=== PATIENT | male | born 1940 | race American Indian/Alaskan Native ===

== ENCOUNTER 2017-03-22 10:43 | Emergency (ER) | payer MEDICARE, OTHER ==
--- NOTE | 2017-03-22 11:58 | EDM.PDOC ---
ED HPI GENERAL MEDICAL PROBLEM - General Chief Complaint: Back Pain or Injury Stated Complaint: PAIN Time Seen by Provider: 03/22/17 11:36 Source of Information: Reports: Patient, RN, RN Notes Reviewed History Limitations: Reports: No Limitations - History of Present Illness INITIAL COMMENTS - FREE TEXT/NARRATIVE: Patient presents to ER with complaint of left lower back pain which began about 3 days ago. It has progressively gotten worse. Pain is sharp and aching. Rates pain 10/10 and shoots upward into the back. Patient states he sees someone at [facility]. He is to be monitored monthly for kidneys and pancreas. Location: Reports: Back Quality: Reports: Ache Severity: Moderate Improves with: Reports: None Worsens with: Reports: None Associated Symptoms: Reports: No Other Symptoms Left Lower Back Pain Score (Numeric/FACES): 9 - Related Data Allergies Allergy/AdvReac Type Severity Reaction Status Date / Time No Known Allergies Allergy Verified 03/22/17 11:26 Home Meds: Home Meds Lisinopril [Prinivil] 10 mg PO DAILY 04/29/15 [History] Aspirin [[place] Aspirin] 1 tab PO DAILY 08/30/15 [History] Finasteride [Proscar] 1 tab PO DAILY 08/30/15 [History] Insulin NPH Human Isophane [Humulin N] INJECT ASDIRECTED 08/30/15 [History] Multivitamin [Multivitamins] 1 tab PO DAILY 08/30/15 [History] Tamsulosin [Flomax] 1 tab PO BID 08/30/15 [History] Triamterene/Hydrochlorothiazid [Dyazide 37.5-25] 1 tab PO DAILY 08/30/15 [ History] atorvaSTATin [Lipitor] 1 tab PO BEDTIME 08/30/15 [History] hydrOXYzine HCl [Atarax] 1 tab PO Q4H PRN 08/30/15 [History] metFORMIN HCl [Metformin HCl] 1 tab PO BID 08/30/15 [History] oxyCODONE HCl/Acetaminophen [Percocet 5-325 mg Tablet] 1 tab PO Q4H PRN [History] Past Medical History HEENT History: Reports: Hard of Hearing, Impaired Vision Cardiovascular History: Reports: High Cholesterol, Hypertension Genitourinary History: Reports: BPH Musculoskeletal History: Reports: Osteoarthritis Endocrine/Metabolic History: Reports: Diabetes, Type II - Past Surgical History HEENT Surgical History: Reports: Cataract Surgery GI Surgical History: Reports: Appendectomy Male Surgical History: Reports: Kidney Stone Extraction Musculoskeletal Surgical History: Reports: Shoulder Surgery Social & Family History - Family History Family Medical History: Noncontributory - Tobacco Use Smoking Status *Q: Former Smoker Years of Tobacco use: 40 Packs/Tins Daily: 0.1 Used Tobacco, but Quit: Yes Month Tobacco Last Used: 1 - Caffeine Use Caffeine Use: Reports: Coffee - Recreational Drug Use Recreational Drug Use: No - Living Situation & Occupation Living situation: Reports: Occupation: Retired ED ROS GENERAL - Review of Systems Review Of Systems: ROS reveals no pertinent complaints other than HPI. ED EXAM,LOWER BACK PAIN/INJURY - Physical Exam Exam: See Below Exam Limited By: No Limitations General Appearance: Alert, WD/WN, No Apparent Distress Eye Exam: Bilateral Eye: Normal Inspection Ears: Other (hard of hearing.) Nose: Normal Inspection, Normal Mucosa, No Blood Throat/Mouth: Normal Inspection, Normal Lips, Normal Teeth, Normal Gums, Normal Oropharynx, Normal Voice, No Airway Compromise Neck: Normal Inspection, Supple, Non-Tender, Full Range of Motion Respiratory/Chest: No Respiratory Distress, Lungs Clear, Normal Breath Sounds, No Accessory Muscle Use, Chest Non-Tender Cardiovascular: Normal Peripheral Pulses, Regular Rate, Rhythm, No Edema, No Gallop, No JVD, No Murmur, No Rub GI/Abdominal: Soft, Other (Distended and tender to left upper and lower quadrants. CVA tendernessleft.) (Male) Exam: Deferred Rectal (Males) Exam: Deferred Back Exam: Normal Inspection, Full Range of Motion, NT Extremities: Normal Inspection, Normal Range of Motion, Non-Tender, No Pedal Edema, Normal Capillary Refill Neurological: Alert, Normal Mood/Affect, Normal Dorsiflexion, CN II-XII Intact, Normal Plantar Flexion, Normal Gait, Normal Reflexes, No Motor/Sensory Deficits , Oriented x 3 Psychiatric: Normal Affect, Normal Mood Skin Exam: Warm, Dry, Intact, Normal Color, No Rash Lymphatic: No Adenopathy Course - Vital Signs Last Recorded V/S: Last Vital Signs Temp 98.2 F 03/22/17 13:18 Pulse 73 03/22/17 13:18 Resp 18 03/22/17 13:18 BP 141/64 H 03/22/17 13:18 Pulse Ox 98 03/22/17 13:18 - Orders/Labs/Meds Orders: Active Orders 24 hr Category Date Time Status Abdomen Pelvis w Cont [CT] Urgent Exams 03/22/17 12:08 Taken Labs: Laboratory Tests 03/22/17 03/22/17 03/22/17 Range/Units 11:24 11:24 11:48 WBC 7.0 (5.0-10.0) 10^3/uL RBC 4.99 (4.6-6.2) 10^6/uL Hgb 14.8 (14.0-18.0) g/dL Hct 45.9 (40.0-54.0) % MCV 92.0 (80-100) fL MCH 29.7 (27.0-34.0) pg MCHC 32.2 L (33.0-35.0) g/dL Plt Count 218 (150-450) 10^3/uL Neut % (Auto) 54.0 (42.2-75.2) % Lymph % (Auto) 30.5 (20.5-50.1) % [place] % (Auto) 8.4 H (2-8) % Eos % (Auto) 6.4 H (1.0-3.0) % Baso % (Auto) 0.7 (0.0-1.0) % Sodium 139 (135-145) mmol/L Potassium 4.0 (3.6-5.0) mmol/L Chloride 104 (101-111) mmol/L Carbon Dioxide 27.0 (21.0-31.0) mmol/L Anion Gap 12.0 BUN 9 (7-18) mg/dL Creatinine 0.9 (0.6-1.3) mg/dL Est Cr Clr Drug Dosing 75.53 mL/min Estimated GFR (MDRD) > 60 BUN/Creatinine Ratio 10.00 Glucose 272 H (74-105) mg/dL Calcium 8.8 (8.4-10.2) mg/dl Total Bilirubin 1.2 H (0.2-1.0) mg/dL AST 23 (10-42) IU/L ALT 12 (10-60) IU/L Alkaline Phosphatase 68 (42-121) IU/L Total Protein 7.0 (6.7-8.2) g/dl Albumin 3.8 (3.2-5.5) g/dl Globulin 3.2 Albumin/Globulin Ratio 1.19 Amylase 40 (28-100) U/L Lipase 30 (22-51) U/L Urine Color Yellow (YELLOW) Urine Appearance Clear (CLEAR) Urine pH 5.5 (5.0-9.0) Ur Specific [place] >= 1.030 (1.005-1.030) Urine Protein 100 H (NEGATIVE) Urine Glucose (UA) 100 H (NEGATIVE) Urine Ketones Trace H (NEGATIVE) Urine Occult Blood Negative (NEGATIVE) Urine Nitrite Negative (NEGATIVE) Urine Bilirubin Small H (NEGATIVE) Urine Urobilinogen 0.2 (0.2-1.0) mg/dL Ur Leukocyte Esterase Negative (NEGATIVE) Urine RBC Not seen /HPF Urine WBC Not seen (0-5/HPF) /HPF Ur Epithelial Cells Rare /HPF Amorphous Sediment Moderate (0/HPF) /HPF Urine Bacteria Not seen (0-FEW/HPF) /HPF Fine Granular Casts Few H (0/LPF) /LPF Urine Mucus Many H /LPF Meds: Medications Discontinued Medications Generic Name Dose Route Start Last Admin Trade Name Freq PRN Reason Stop Dose Admin Iopamidol 100 ml 03/22/17 12:09 03/22/17 12:46 Isovue-300 (61%) IVPUSH 03/22/17 12:10 100 ml ONETIME ONE Administration - Radiology Interpretation Free Text/Narrative:: CT abdomen/pelvis with contrast: No sign of acute intra-abdominal pathology See rad report Departure - Departure Time of Disposition: 13:12 Disposition: Home, Self-Care 01 Condition: Fair Clinical Impression: Muscle strain - Discharge Information Instructions: Back Injury Prevention, [id number], Muscle Strain, [id number] , Back Pain, Adult, [id number] Referrals: Demetrius Fraire [Primary Care Provider] - Forms: ED Department Discharge Additional Instructions: RX: Tramadol Rest, ice, heat Drink plenty of fluids Follow up with your primary care facility next week. - My Orders Last 24 Hours: My Active Orders 03/22/17 12:08 Abdomen Pelvis w Cont [CT] Urgent - Assessment/Plan Last 24 Hours: My Active Orders 03/22/17 12:08 Abdomen Pelvis w Cont [CT] Urgent
[2017-03-22 12:02] LABS: CHLORIDE,CL 104 mmol/L (101-111); SODIUM,NA 139 mmol/L (135-145)
[2017-03-22] MEDS ORDERED: Iopamidol 612 MG/ML 100 ML Bottle IVPUSH ONE (12:09)
[2017-03-22 13:18] VITALS: BP 141/64
== END 2017-03-22 13:48 | disposition home or self-care (01) ==
LOC: DL.ED 10:43
DX: S39.012A Strain of muscle, fascia and tendon of lower back, initial encounter (principal); E78.00 Pure hypercholesterolemia, unspecified; I10 Essential (primary) hypertension; E11.9 Type 2 diabetes mellitus without complications; Z79.82 Long term (current) use of aspirin; Z79.899 Other long term (current) drug therapy; Z79.4 Long term (current) use of insulin; Z87.891 Personal history of nicotine dependence; X58.XXXA Exposure to other specified factors, initial encounter
CPT/HCPCS: 36415; 74177; 80053; 81001; 82150; 83690; 85025; 99284; Q9967; 99283

== ENCOUNTER 2017-05-15 14:57 | Emergency (ER) | payer MEDICARE, OTHER ==
[2017-05-15 15:12] VITALS: BP 135/86
--- NOTE | 2017-05-15 15:40 | EDM.PDOC ---
ED HPI GENERAL MEDICAL PROBLEM - General Chief Complaint: Skin Complaint Stated Complaint: FROM [facility] Time Seen by Provider: 05/15/17 15:15 Source of Information: Reports: Patient History Limitations: Reports: No Limitations - History of Present Illness INITIAL COMMENTS - FREE TEXT/NARRATIVE: This 76 yo male patient reports to the ED with erythema of the left middle finger. The patient's provider from [facility]. According to the patient 's provider, the patient had a small scratch from a nail on Friday and was seen in the Clinic. The patient was given an injection of Rocephin while in the Clinic and sent home on Keflex (500 mg) 1 by mouth 4 times per day. The patient reports the swelling has gotten worse over the past 2 days. The provider arranged to have the patient seen here in the ED for further evaluation and care. After 3 hours, the patient arrived in the emergency department for treatment. The patient reports his grandson had a wound on his leg that they opened up and drained at the [facility] prior to his arrival in the ED. 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: Other Medication(s) (Keflex) Left Hand Pain Score (Numeric/FACES): 7 - Related Data Allergies Allergy/AdvReac Type Severity Reaction Status Date / Time No Known Allergies Allergy Verified 03/22/17 11:26 Home Meds: Home Meds Lisinopril [Prinivil] 20 mg PO DAILY 04/29/15 [History] Aspirin [[place] Aspirin] 1 tab PO DAILY 08/30/15 [History] Finasteride [Proscar] 1 tab PO DAILY 08/30/15 [History] metFORMIN HCl [Metformin HCl] 1 tab PO BID 08/30/15 [History] Cephalexin [Cephalexin] 500 mg PO Q6H 05/15/17 [History] Dextrose [Glucose] 4 tab PO ASDIRECTED PRN 05/15/17 [History] Insulin NPH/Insulin Reg,Human [Novolin 70-30] 30 - 36 unit SUBCUT ASDIRECTED [History] Ofloxacin [Ofloxacin] 10 drop EARLF DAILY 05/15/17 [History] Past Medical History HEENT History: Reports: Hard of Hearing, Impaired Vision Cardiovascular History: Reports: High Cholesterol, Hypertension Genitourinary History: Reports: BPH Musculoskeletal History: Reports: Osteoarthritis Endocrine/Metabolic History: Reports: Diabetes, Type II - Past Surgical History HEENT Surgical History: Reports: Cataract Surgery GI Surgical History: Reports: Appendectomy Male Surgical History: Reports: Kidney Stone Extraction Musculoskeletal Surgical History: Reports: Shoulder Surgery Social & Family History - Family History Family Medical History: Noncontributory - Tobacco Use Smoking Status *Q: Former Smoker Years of Tobacco use: 40 Packs/Tins Daily: 0.1 Used Tobacco, but Quit: Yes Month Tobacco Last Used: 1 - Caffeine Use Caffeine Use: Reports: Coffee - Recreational Drug Use Recreational Drug Use: No - Living Situation & Occupation Living situation: Reports: Occupation: Retired ED ROS GENERAL - Review of Systems Review Of Systems: ROS reveals no pertinent complaints other than HPI. ED EXAM, SKIN/RASH Exam: See Below Exam Limited By: No Limitations General Appearance: Alert, WD/WN, Mild Distress Eye Exam: Bilateral Eye: EOMI, Normal Inspection, PERRL Ears: Normal External Exam Nose: Normal Inspection, Normal Mucosa, No Blood Throat/Mouth: Normal Inspection, Normal Lips, Normal Teeth Head: Atraumatic, Normocephalic Neck: Normal Inspection, Full Range of Motion Respiratory/Chest: No Respiratory Distress, Lungs Clear, Normal Breath Sounds, No Accessory Muscle Use, Chest Non-Tender Cardiovascular: Normal Peripheral Pulses, Regular Rate, Rhythm GI/Abdominal: Normal Bowel Sounds, Soft, Non-Tender, No Organomegaly, No Distention, No Abnormal Bruit, No Mass (Male) Exam: Deferred Rectal (Males) Exam: Deferred Back Exam: Normal Inspection, Full Range of Motion, NT Extremities: Other (left middle finger erythema, induration and redness from the PIP joint through the patient's wrist.) Neurological: Alert, Oriented Psychiatric: Normal Affect, Normal Mood Skin: Erythema (left middle finger) Location, Skin: Upper Extremity, Left Characteristics: Erythematous Associated features: Warmth, Tenderness, Swelling, Induration Course - Vital Signs Last Recorded V/S: Last Vital Signs Temp 37.2 C 05/15/17 15:11 Pulse 81 05/15/17 15:11 Resp 16 05/15/17 15:11 BP 135/86 05/15/17 15:11 Pulse Ox 98 05/15/17 15:11 - Orders/Labs/Meds Orders: Active Orders 24 hr Category Date Time Status CULTURE BLOOD [BC] Stat Lab 05/15/17 15:27 Ordered CULTURE BLOOD [BC] Stat Lab 05/15/17 15:57 Received CULTURE WOUND [RM] Stat Lab 05/15/17 15:32 Received Vancomycin 2 gm Med 05/15/17 15:50 Active Sodium Chloride 0.9% [Normal Saline] 500 ml IV ONETIME Blood Culture x2 Reflex Set [OM.PC] Stat Oth 05/15/17 15:27 Ordered Medication Orders Vancomycin HCl 2 gm/ Sodium (Chloride) 500 mls @ 334 mls/hr IV ONETIME ONE Stop: 05/15/17 17:19 Last Admin: 05/15/17 16:04 Dose: 334 mls/hr Labs: Laboratory Tests 05/15/17 05/15/17 05/15/17 Range/Units 15:33 15:33 15:33 WBC 12.0 H (5.0-10.0) 10^3/uL RBC 4.76 (4.6-6.2) 10^6/uL Hgb 14.3 (14.0-18.0) g/dL Hct 43.2 (40.0-54.0) % MCV 90.8 (80-100) fL MCH 30.0 (27.0-34.0) pg MCHC 33.1 (33.0-35.0) g/dL Plt Count 240 (150-450) 10^3/uL Neut % (Auto) 68.2 (42.2-75.2) % Lymph % (Auto) 17.8 L (20.5-50.1) % [place] % (Auto) 10.5 H (2-8) % Eos % (Auto) 3.2 H (1.0-3.0) % Baso % (Auto) 0.3 (0.0-1.0) % Sodium 136 (135-145) mmol/L Potassium 4.0 (3.6-5.0) mmol/L Chloride 100 L (101-111) mmol/L Carbon Dioxide 28.0 (21.0-31.0) mmol/L Anion Gap 12.0 BUN 13 (7-18) mg/dL Creatinine 0.9 (0.6-1.3) mg/dL Est Cr Clr Drug Dosing 77.84 mL/min Estimated GFR (MDRD) > 60 BUN/Creatinine Ratio 14.44 Glucose 217 H (74-105) mg/dL Lactic Acid 1.2 (0.5-2.2) mmol/L Calcium 8.7 (8.4-10.2) mg/dl Total Bilirubin 1.1 H (0.2-1.0) mg/dL AST 17 (10-42) IU/L ALT 11 (10-60) IU/L Alkaline Phosphatase 60 (42-121) IU/L Total Protein 7.2 (6.7-8.2) g/dl Albumin 3.5 (3.2-5.5) g/dl Globulin 3.7 Albumin/Globulin Ratio 0.95 Meds: Medications Generic Name Dose Route Start Last Admin Trade Name Freq PRN Reason Stop Dose Admin Vancomycin HCl 2 gm/ Sodium 500 mls @ 334 mls/hr 05/15/17 15:50 05/15/17 16: 04 Chloride IV 05/15/17 17:19 334 mls/hr ONETIME ONE Administration Discontinued Medications Generic Name Dose Route Start Last Admin Trade Name Freq PRN Reason Stop Dose Admin Bacitracin 1 dose 05/15/17 17:14 Bacitracin Oint 1 Gm TOP 05/15/17 17:15 ONETIME ONE Departure - Departure Time of Disposition: 17:45 Disposition: Home, Self-Care 01 Condition: Fair Clinical Impression: Cellulitis Qualifiers: Site of cellulitis: extremity Site of cellulitis of extremity: finger Laterality: left Qualified Code(s): L03.012 - Cellulitis of left finger - Discharge Information Instructions: Cellulitis, Adult, [id number] Forms: ED Department Discharge Care Plan Goals: The patient was advised of the examination and lab results during the visit. The patient was given an IV dose of Vancomycin (2 grams) while in the emergency department. The patient was discharged with a script for Clindamycin (300 mg) to take 1 by mouth 4 times per day for 10 days. The patient should continue with the Keflex as prescribed by [facility]. If the patient has any additional symptoms or concerns, the patient should follow-up with his primary care facility or return to the emergency department. - My Orders Last 24 Hours: My Active Orders 05/15/17 15:27 CULTURE BLOOD [BC] Stat Blood Culture x2 Reflex Set [OM.PC] Stat 05/15/17 15:32 CULTURE WOUND [RM] Stat 05/15/17 15:50 Vancomycin 2 gm Sodium Chloride 0.9% [Normal Saline] 500 ml IV ONETIME 05/15/17 15:57 CULTURE BLOOD [BC] Stat - Assessment/Plan Last 24 Hours: My Active Orders 05/15/17 15:27 CULTURE BLOOD [BC] Stat Blood Culture x2 Reflex Set [OM.PC] Stat 05/15/17 15:32 CULTURE WOUND [RM] Stat 05/15/17 15:50 Vancomycin 2 gm Sodium Chloride 0.9% [Normal Saline] 500 ml IV ONETIME 05/15/17 15:57 CULTURE BLOOD [BC] Stat
[2017-05-15] MEDS: Vancomycin 2 GM in Sodium Chloride 0.9% 500 ML IV ONE (16:04)
[2017-05-15 16:07] LABS: CHLORIDE,CL 100 mmol/L (101-111); SODIUM,NA 136 mmol/L (135-145)
[2017-05-15] MEDS: Bacitracin Oint 1 GM U/D Packet TOP ONE (17:24)
== END 2017-05-15 17:51 | disposition home or self-care (01) ==
LOC: DL.ED 14:57
DX: L03.012 Cellulitis of left finger (principal); E78.00 Pure hypercholesterolemia, unspecified; I10 Essential (primary) hypertension; E11.9 Type 2 diabetes mellitus without complications; Z79.82 Long term (current) use of aspirin; Z79.899 Other long term (current) drug therapy; Z87.891 Personal history of nicotine dependence
CPT/HCPCS: 36415; 80053; 83605; 85025; 87040; 87070; 96365; 96366; 99284; J3370; J7040; 87077; 87186

== ENCOUNTER 2020-10-30 09:57 | Emergency (ER) | payer OTHER ==
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
[2020-10-30 10:13] VITALS: BP 118/68; PULSE 118
[2020-10-30] MEDS ORDERED: Sodium Chloride 0.9% 10 ML Syringe FLUSH PRN (10:42)
[2020-10-30 11:29] LABS: ANION GAP 12.2 mEq/L (7-13)
[2020-10-30] MEDS ORDERED: Aspirin 81 MG Tab.Chew PO ONE (11:41)
--- NOTE | 2020-10-30 13:01 | CT ---
PROCEDURE INFORMATION: Exam: CT Head Without Contrast Exam date and time: 10/30/2020 10:48 AM Age: 80 years old Clinical indication: Dizziness; Additional info: Dizziness, syncope TECHNIQUE: Imaging protocol: Computed tomography of the head without contrast. Radiation optimization: All CT scans at this facility use at least one of these dose optimization techniques: automated exposure control; mA and/or kV adjustment per patient size (includes targeted exams where dose is matched to clinical indication); or iterative reconstruction. COMPARISON: No relevant prior studies available. FINDINGS: Brain: The brain demonstrates diffuse volume loss. There is white matter hypodensity most consistent with chronic small vessel ischemic change. No visible evolving territorial infarct. No hemorrhage. Cerebral ventricles: The ventricles are mildly enlarged in keeping with volume loss. Paranasal sinuses: Prior endoscopic sinus surgery. No sinus air-fluid levels. Mastoid air cells: Visualized mastoid air cells are well aerated. Bones/joints: Unremarkable. No acute fracture. Soft tissues: Unremarkable. IMPRESSION: No acute intracranial abnormality seen.
--- NOTE | 2020-10-30 13:05 | CR ---
PROCEDURE INFORMATION: Exam: XR Chest Exam date and time: 10/30/2020 10:48 AM Age: 80 years old Clinical indication: Other: Syncope TECHNIQUE: Imaging protocol: XR of the chest. Views: 1 view. COMPARISON: No relevant prior studies available. FINDINGS: Lungs: There is pulmonary vascular congestion. No consolidation. Pleural spaces: Blunting of the costophrenic angles suggesting small bilateral pleural effusions. Heart/Mediastinum: Mild cardiomegaly. Bones/joints: No acute fracture seen. The thoracic spine demonstrates diffuse idiopathic skeletal hyperostosis. IMPRESSION: Small bilateral pleural effusions as well as pulmonary vascular congestion.
== END 2020-10-30 13:16 ==
LOC: DL.ED 09:57
DX: I21.4 Non-ST elevation (NSTEMI) myocardial infarction (principal); R55 Syncope and collapse; I10 Essential (primary) hypertension; E11.9 Type 2 diabetes mellitus without complications; M19.90 Unspecified osteoarthritis, unspecified site; R00.0 Tachycardia, unspecified; Z79.82 Long term (current) use of aspirin; Z79.4 Long term (current) use of insulin; Z79.899 Other long term (current) drug therapy; Z20.822 Contact with and (suspected) exposure to COVID-19
CPT/HCPCS: 36415; 70450; 71045; 80053; 82947; 83605; 83735; 83880; 84443; 84484; 85025; 87040; 87635; 93005; 99285; A9270; U0002

== ENCOUNTER 2023-10-11 12:46 | Emergency (ER) | payer OTHER ==
[2023-10-11] MEDS ORDERED: Bacitracin Oint 1 GM U/D Packet ONE (14:23)
[2023-10-11] MEDS: Acetaminophen 325 MG Tab PO ONE (14:28)
[2023-10-11] MEDS: Bacitracin Oint 1 GM U/D Packet TOP ONE (14:29)
[2023-10-11 14:54] LABS: BASOPHILS PERCENT AUTO 0.8 % (0.0-1.0); EOSINOPHILS PERCENT AUTO 4.1 % (1.0-3.0); HEMATOCRIT 41.8 % (40.0-54.0); HEMOGLOBIN 12.9 g/dL (14.0-18.0); LYMPHOCYTES PERCENT AUTO 18.4 % (20.5-50.1); MEAN CORPUSCULAR HEMOGLOBIN 27.2 pg (27.0-34.0); MEAN CORPUSCULAR HGB CONC 30.9 g/dL (33.0-35.0); MEAN CORPUSCULAR VOLUME 88.2 fL (80-100); MONOCYTES PERCENT AUTO 11.5 % (2-8); NEUTROPHILS PERCENT AUTO 65.2 % (42.2-75.2); PLATELET COUNT,PLT 218 10^3/uL (150-450); RED BLOOD CELL COUNT 4.74 10^6/uL (4.6-6.2); WHITE BLOOD CELL COUNT,WBC 9.6 10^3/uL (5.0-10.0)
[2023-10-11 15:06] VITALS: BP 110/91; PULSE 77
[2023-10-11 15:16] LABS: ALBUMIN 3.1 g/dL (3.4-5.0); ANION GAP 11.1 mEq/L (7-13); BILIRUBIN TOTAL 1.6 mg/dL (0.2-1.0); BUN/CREATININE RATIO 9.6 (No establ ref range); CALCIUM 8.6 mg/dL (8.5-10.1); CREATININE 1.25 mg/dL (0.70-1.30); EST CRCL DRUG DOSING (CG) 32.22 mL/min; POTASSIUM,K 4.1 mmol/L (3.5-5.1); PROTEIN TOTAL,TP 7.2 g/dL (6.4-8.2)
[2023-10-11 15:17] LABS: A/G RATIO 0.76
== END 2023-10-11 16:44 | disposition home or self-care (01) ==
LOC: DL.ED 12:46
DX: S52.571A Other intraarticular fracture of lower end of right radius, initial encounter for closed fracture (principal); S52.224A Nondisplaced transverse fracture of shaft of right ulna, initial encounter for closed fracture; S22.32XA Fracture of one rib, left side, initial encounter for closed fracture; S09.90XA Unspecified injury of head, initial encounter; I10 Essential (primary) hypertension; E11.9 Type 2 diabetes mellitus without complications; Z90.49 Acquired absence of other specified parts of digestive tract; Z79.82 Long term (current) use of aspirin; Z79.4 Long term (current) use of insulin; Z79.899 Other long term (current) drug therapy; Z79.84 Long term (current) use of oral hypoglycemic drugs; W05.0XXA Fall from non-moving wheelchair, initial encounter
CPT/HCPCS: 36415; 70450; 71046; 72125; 73090; 73110; 73130; 80053; 85025; 93005; 99284; A9270; 93010

== ENCOUNTER 2024-06-09 19:02 | Emergency (ER) | payer OTHER ==
[2024-06-09] MEDS ORDERED: Sodium Chloride 0.9% 10 ML Syringe FLUSH PRN (19:05)
[2024-06-09 19:32] LABS: BASOPHILS PERCENT AUTO 0.3 % (0.0-1.0); HEMATOCRIT 38.5 % (40.0-54.0); HEMOGLOBIN 11.8 g/dL (14.0-18.0); LYMPHOCYTES PERCENT AUTO 10.4 % (20.5-50.1); MEAN CORPUSCULAR HEMOGLOBIN 26.9 pg (27.0-34.0); MEAN CORPUSCULAR HGB CONC 30.6 g/dL (33.0-35.0); MEAN CORPUSCULAR VOLUME 87.7 fL (80-100); NEUTROPHILS PERCENT AUTO 77.3 % (42.2-75.2); PLATELET COUNT,PLT 246 10^3/uL (150-450); RED BLOOD CELL COUNT 4.39 10^6/uL (4.6-6.2); WHITE BLOOD CELL COUNT,WBC 9.6 10^3/uL (5.0-10.0)
[2024-06-09 19:48] LABS: INR 1.1 (0.9-1.2); PROTHROMBIN TIME 11.5 SEC (9.0-12.0)
[2024-06-09 19:50] LABS: B-TYPE NATRIURETIC PEPTIDE,BNP 109 pg/ml (0-100)
[2024-06-09 19:55] LABS: ALANINE AMINOTRANSFERASE,ALT 25 U/L (16-63); ALBUMIN 2.6 g/dL (3.4-5.0); ALKALINE PHOSPHATASE 71 U/L (46-116); ANION GAP 12.5 mEq/L (7-13); ASPARTATE AMNIOTRANSFERASE,AST 21 U/L (15-37); BILIRUBIN TOTAL 0.7 mg/dL (0.2-1.0); BLOOD UREA NITROGEN,BUN 14 mg/dL (7-18); BUN/CREATININE RATIO 10.2 (No establ ref range); CALCIUM 8.5 mg/dL (8.5-10.1); CARBON DIOXIDE,CO2 31 mmol/L (21-32); CHLORIDE,CL 105 mmol/L (98-107); CREATININE 1.37 mg/dL (0.70-1.30); GLUCOSE RANDOM 118 mg/dL (70-99); POTASSIUM,K 4.5 mmol/L (3.5-5.1); PROTEIN TOTAL,TP 6.5 g/dL (6.4-8.2); SODIUM,NA 144 mmol/L (136-145)
[2024-06-09 19:56] LABS: A/G RATIO 0.67; ESTIMATED GFR 51 mL/min (>=60); ETHANOL BLOOD MEDICAL < 3 mg/dL (0)
[2024-06-09 20:39] LABS: APPEARANCE,URINE CLOUDY (CLEAR); BILIRUBIN,URINE NEGATIVE (NEGATIVE); COLOR,URINE YELLOW (YELLOW); GLUCOSE,URINE NEGATIVE (NEGATIVE); KETONES,URINE NEGATIVE (NEGATIVE); LEUKOCYTE ESTERASE,URINE SMALL (NEGATIVE); NITRITE,URINE POSITIVE (NEGATIVE); OCCULT BLOOD,URINE TRACE-LYSED (NEGATIVE); PROTEIN,URINE 30 (NEGATIVE)
[2024-06-09 20:59] LABS: BACTERIA,URINE MANY /HPF (0-FEW/HPF); EPITHELIAL CELLS,URINE FEW /HPF (NOT SEEN); RBC,URINE 0-5 /HPF (0-5); WBC,URINE >100 /HPF (0-5/HPF)
[2024-06-09] MEDS: Sulfamethoxazole/Trimethoprim 800-160 MG Tab PO ONE (21:12)
[2024-06-09 21:44] VITALS: BP 118/65; PULSE 75
== END 2024-06-09 21:31 | disposition home or self-care (01) ==
LOC: DL.ED 19:02
DX: E11.649 Type 2 diabetes mellitus with hypoglycemia without coma (principal); R41.82 Altered mental status, unspecified; N39.0 Urinary tract infection, site not specified; I10 Essential (primary) hypertension; E78.00 Pure hypercholesterolemia, unspecified; Z79.82 Long term (current) use of aspirin; Z79.84 Long term (current) use of oral hypoglycemic drugs; Z79.899 Other long term (current) drug therapy
CPT/HCPCS: 70450; 80053; 80307; 81001; 82947; 83880; 84484; 85025; 85610; 87086; 87088; 87186; 87428-QW; 93005; 99284; 99285; A9270-GY